=== PATIENT | female | born 1990 | race Caucasian/White ===

== ENCOUNTER 2017-06-23 20:10 | Inpatient (IN) | payer BC ==
[2017-06-23] MEDS ORDERED: Dinoprostone* 10 MG VAG.SUPP VAGINAL ONE (20:47)
--- NOTE | 2017-06-23 21:32 | HP ---
General Information - General Information Maternal Age: 26 Grav: 2 Para: 1 SAB: 0 IEA: 0 Estimated Due Date: 06/28/17 Determined By: Early Ultrasound Gestational Age in Weeks and Days: 39 Weeks and 2 Days Maternal Blood Type and Rh: B Positive - Results this Serology/RPR Result: Non-Reactive Rubella Result: Immune HBsAg Result: Negative HIV Result: Negative GBS Culture Result: Negative Past Medical History Delivery History: Hx Uncomplicated Vaginal Delivery Pertinent Past Medical History: Non-Contributory Pertinent Past Surgical History: See Records Pertinent Family History: Non-Contributory - Antepartal Records Antepartal Records: Reviewed, Uncomplicated Review of Systems Constitutional: Comfortable CV Complaint: No Respiratory: Shortness of Breath: No Movement: Normal Exam Allergies/Adverse Reactions: Allergies Tetanus Vaccines and Toxoid Allergy (Verified 06/23/17 20:55) Unknown Reaction Details allergy as a child, unknown reaction Vital Signs 06/23/17 20:33 Temperature 98.9 F Pulse Rate 76 Respiratory 15 Rate Blood Pressure 116/70 (mmHg) O2 Sat by Pulse 99 Oximetry - Measurements Height: 5 ft Weight: 135 lb Weight in lbs: 135 Body Mass Index (BMI): 26.4 Pre- Weight: 102 lb Weight Gained This : 33 lbs and 0 ozs - Exam Abdomen: No Upper Quadrant Pain Breast: Breast Exam Deferred Extremities: No Edema Heart: Normal Rhythm/Heart Sounds HEENT: No Significant Findings Lungs: Clear Bilaterally Rectal: Rectal Exam Deferred Reflexes: DTR 2+ Thyroid: No Thyromegaly EFM Findings - External Monitor Findings Baseline Heart Rate: 140 External Monitor Findings: Accelerations Present, Variability Moderate Contractions: Irregular, Mild Assessment/Plan - Reason for Visit Reason for Visit: elective induction - Plan Plan: Cervical Ripening
[2017-06-24] MEDS ORDERED: Oxytocin in LR* 20 UNITS/1,000 ML BAG IVPB SCH ×2 (08:00→18:00)
[2017-06-24 08:34] LABS: ABS Basophils 0 10^3/ul (0-0.2); ABS Eosinophils 0.1 10^3/ul (0-0.6); ABS Lymphocytes 1.6 10^3/ul (1.0-4.8); ABS Monocytes 0.4 10^3/ul (0-0.8); ABS Neutrophils 4.5 10^3/ul (1.5-7.7); ABS Nucleated RBC 0 10^3/ul; Eosinophil % 0.8 % (0-6); Hematocrit 35 % (35-47); Hemoglobin 11.4 g/dl (12.0-16.0); Lymphocyte % 24.1 % (25-47); Mean Corpuscular HGB Conc 33 g/dl (31-36); Mean Corpuscular Hemoglobin 24 pg (27-31); Mean Corpuscular Volume 72 fL (80-97); Mean Platelet Volume 9 um3 (7.4-10.4); Nucleated Red Blood Cells % 0.1; Platelet Count 226 10^3/ul (150-450); Red Blood Count 4.83 10^6/ul (4.0-5.4); Red Cell Distribution Width 16 % (10.5-15); White Blood Count 6.6 10^3/ul (3.5-10.8)
[2017-06-24] MEDS ORDERED: OBEPIDURAL* 250 ML EPIDURAL ONE (11:13)
[2017-06-24] MEDS ORDERED: Phenylephrine IV* 40 MCG/ML 10 ML SYRINGE IV PUSH PRN ×2 (11:57)
[2017-06-24] MEDS ORDERED: Famotidine TAB* 20 MG PO PRN (11:57)
[2017-06-24] MEDS ORDERED: Sodium Citrate/Citric Acid* 15 ML UDC PO PRN (11:57)
[2017-06-24] MEDS ORDERED: EPHEDrine (Pressors)* 50 MG/ML VIAL IV PUSH PRN ×2 (11:57)
[2017-06-24] MEDS ORDERED: OBEPIDURAL* 250 ML EPIDURAL SCH (12:00)
[2017-06-24] MEDS ORDERED: Glycerin ADULT SUPP PR PRN (17:56)
[2017-06-24] MEDS ORDERED: Acetaminophen TAB* 325 MG PO PRN (17:56)
[2017-06-24] MEDS ORDERED: Dibucaine 1% 28.35 GM TUBE PR PRN (17:56)
[2017-06-24] MEDS ORDERED: Witch Hazel PAD* JAR TOPICAL PRN (17:56)
[2017-06-24] MEDS ORDERED: Simethicone TAB* 80 MG TAB.CHEW PO SCH (21:00)
[2017-06-25] MEDS: Ibuprofen TAB* 600 MG PO PRN ×3 (01:14→15:11)
[2017-06-25] MEDS: Docusate CAP* 100 MG PO SCH ×3 (01:14→15:11)
[2017-06-25 07:23] LABS: ABS Basophils 0 10^3/ul (0-0.2); ABS Eosinophils 0.1 10^3/ul (0-0.6); ABS Lymphocytes 1.8 10^3/ul (1.0-4.8); ABS Monocytes 0.6 10^3/ul (0-0.8); ABS Neutrophils 9.9 10^3/ul (1.5-7.7); ABS Nucleated RBC 0 10^3/ul; Eosinophil % 0.5 % (0-6); Hematocrit 28 % (35-47); Hemoglobin 9.2 g/dl (12.0-16.0); Lymphocyte % 14.9 % (25-47); Mean Corpuscular HGB Conc 33 g/dl (31-36); Mean Corpuscular Hemoglobin 24 pg (27-31); Mean Corpuscular Volume 71 fL (80-97); Mean Platelet Volume 8 um3 (7.4-10.4); Nucleated Red Blood Cells % 0; Platelet Count 189 10^3/ul (150-450); Red Blood Count 3.89 10^6/ul (4.0-5.4); Red Cell Distribution Width 15 % (10.5-15); White Blood Count 12.4 10^3/ul (3.5-10.8)
[2017-06-25] MEDS ORDERED: Ferrous Gluconate TAB* 324 MG TAB PO SCH (09:00)
[2017-06-25 12:00] VITALS: BP 113/76
== END 2017-06-25 18:40 | disposition home or self-care (01) | DRG 560 ==
LOC: MCHOBOUT 20:10 → MCHOB 21:15
PROVIDERS: ADMIT Obstetrics & Gynecology; ATTEND Obstetrics & Gynecology
PROC: 10E0XZZ Delivery of Products of Conception, External Approach (ICD-10-PCS; principal; 2017-06-24)
PROC: 3E033VJ Introduction of Other Hormone into Peripheral Vein, Percutaneous Approach (ICD-10-PCS; 2017-06-24)
PROC: 0KQM0ZZ Repair Perineum Muscle, Open Approach (ICD-10-PCS; 2017-06-24)
PROC: 10907ZC Drainage of Amniotic Fluid, Therapeutic from Products of Conception, Via Natural or Artificial Opening (ICD-10-PCS; 2017-06-24)
DX: O66.0 Obstructed labor due to shoulder dystocia (principal); D64.9 Anemia, unspecified; O70.1 Second degree perineal laceration during delivery; O90.81 Anemia of the puerperium; Z3A.39 39 weeks gestation of pregnancy; Z37.0 Single live birth
CPT/HCPCS: 36415; 59200; 85025; 85060; 86850; 86900; 86901; A9270-GY